=== PATIENT | male | born 1945 | race Caucasian/White ===

== ENCOUNTER 2018-05-25 07:59 | Day surgery (SDC) | payer MEDICARE, OTHER ==
[~2018-05-25] VITALS: Ht 182.9 cm; Wt 83.0 kg
[~2018-05-25 07:59] MED LIST: ASCO500 PO; ASPI81CH PO; Avapro300 MG PO; CYCL10 PO; FISH1000 PO; GABA100 PO; HYDACE5 PO; IBUP400 PO; Multiple Vitam1 EAC1 PO; Questran Light210 GM; SIMV10 PO; TADA10TA PO
== END 2018-05-25 09:47 | disposition home or self-care (01) ==
LOC: ORSCSDS 07:59
PROVIDERS: Orthopaedic Surgery
PROC: 3E0R33Z Introduction of Anti-inflammatory into Spinal Canal, Percutaneous Approach (ICD-10-PCS; principal; 2018-05-25 09:00)
DX: M51.16 Intervertebral disc disorders with radiculopathy, lumbar region (principal); M48.061 Spinal stenosis, lumbar region without neurogenic claudication; A69.20 Lyme disease, unspecified; I10 Essential (primary) hypertension; E78.5 Hyperlipidemia, unspecified; Z87.891 Personal history of nicotine dependence; Z79.82 Long term (current) use of aspirin; Z79.899 Other long term (current) drug therapy
CPT/HCPCS: J1040

== ENCOUNTER 2020-11-03 13:55 | Inpatient (IN) | payer MEDICARE, OTHER ==
[~2020-11-03] VITALS: Ht 182.9 cm; Wt 72.6 kg
[~2020-11-03 13:55] MED LIST changes: -Avapro300 MG PO; -FISH1000 PO; +IRBE150 PO; +OMEGA-3 FISH O1 EAC6 PO
[2020-11-03 14:27] LABS: BASOPHILS ABSOLUTE AUTO 0.04 K/mm3 (0.00-0.23); BASOPHILS PERCENT AUTO 0 % (0-2); EOSINOPHILS ABSOLUTE AUTO 0.01 K/mm3 (0.00-0.68); EOSINOPHILS PERCENT AUTO 0 % (0-6); Hematocrit 35.9 % (37.0-53.0); IMMATURE GRAN ABSOLUTE AUTO 0.14 K/mm3 (0.00-0.10); IMMATURE GRAN PERCENT AUTO 1 % (0-1); LYMPHOCYTES ABSOLUTE AUTO 0.53 K/mm3 (0.84-5.20); LYMPHOCYTES PERCENT AUTO 3 % (21-46); MONOCYTES ABSOLUTE AUTO 0.74 K/mm3 (0.16-1.47); MONOCYTES PERCENT AUTO 5 % (4-13); Mean Corpuscular HGB 30.8 pg (26.0-34.0); Mean Corpuscular HGB Conc 33.4 g/dL (31.5-36.5); Mean Corpuscular Volume 92 fL (80-100); Mean Platelet Volume 9.2 fL (9.1-12.4); NEUTROPHILS ABSOLUTE AUTO 14.29 K/mm3 (1.96-9.15); NEUTROPHILS PERCENT AUTO 91 % (41-73); Platelet Count 196 K/mm3 (150-400); RDW Coefficient Variation 15.9 % (11.7-14.2); RDW Standard Deviation 53.9 fL (35.1-46.3); White Blood Cell Count 15.75 K/mm3 (4.00-11.30)
[2020-11-03 14:44] LABS: Alanine Aminotransfer (ALT/SGP 25 U/L (12-78); Albumin, Blood 2.8 g/dL (3.4-5.0); Albumin/Globulin Ratio 0.7 (0.8-1.8); Alk Phos 80 U/L (50-136); Anion Gap 9 mmol/L (6-16); Aspartate Aminotrans (AST/SGOT 17 U/L (12-37); Bilirubin, Total 1.6 mg/dL (0.1-1.0); Blood Urea Nitrogen 27 mg/dL (8-24); Bun/Creatinine Ratio 24.8 (12.0-20.0); CO2, Blood 23 mmol/L (21-32); Calcium, Blood 8.8 mg/dL (8.5-10.1); Chloride, Blood 100 mmol/L (98-108); Creatinine, Blood 1.09 mg/dL (0.60-1.20); Globulin, Blood 4.2 g/dL (2.2-4.0); Glomerular Filtration Rate >60 (60-); Glucose, Blood 99 mg/dL (70-99); Potassium, Blood 4.3 mmol/L (3.5-5.5); Sodium, Blood 132 mmol/L (136-145); Troponin I 0.079 ng/mL (0.000-0.040)
[2020-11-03 16:20] LABS: Influenza A, PCR NEGATIVE (NEGATIVE); Influenza B, PCR NEGATIVE (NEGATIVE); Resp Syncytial Virus, PCR NEGATIVE (NEGATIVE); SARS-Cov-2 (COVID-19) PCR, MMC NEGATIVE (NEGATIVE)
--- NOTE | 2020-11-03 18:49 | NUR ---
SHIFT SUMMARY PATIENT TO THE FLOOR FROM THE ER LATE THIS SHIFT. PATIENT MADE COMFORTABLE AND ORIENTED TO THE ROOM. PATIENT SITTING UP IN BED, SON AT BEDSIDE.
--- NOTE | 2020-11-04 04:30 | NUR ---
SHIFT SUMMARY ASSUMED CARE OF PT AT 1900. PT IS A/OX4. HEART SOUNDS REGULAR, LUNG SOUNDS ARE COURSE WITH CARCKLES T/O, PT HAS PRODUCTIVE COUGH, PT SUCTIONS HIMSELF, SPUTUM IS THICK AND YELLOW. PT ON 2L NC. PT SBA TO BATHROOM WITH WALKER. PT CONTIENT T/O THE NIGHT. PT HAD A HARD TIME SLEEPING, HOSPITALIST NOTIFIED. CALL LIGHT IN REACH, BED IN LOWEST POSTION.
[2020-11-04 04:55] LABS: BASOPHILS ABSOLUTE AUTO 0.01 K/mm3 (0.00-0.23); BASOPHILS PERCENT AUTO 0 % (0-2); EOSINOPHILS ABSOLUTE AUTO 0.03 K/mm3 (0.00-0.68); EOSINOPHILS PERCENT AUTO 0 % (0-6); Hematocrit 30.4 % (37.0-53.0); IMMATURE GRAN ABSOLUTE AUTO 0.08 K/mm3 (0.00-0.10); IMMATURE GRAN PERCENT AUTO 1 % (0-1); LYMPHOCYTES ABSOLUTE AUTO 0.64 K/mm3 (0.84-5.20); LYMPHOCYTES PERCENT AUTO 6 % (21-46); MONOCYTES ABSOLUTE AUTO 0.58 K/mm3 (0.16-1.47); MONOCYTES PERCENT AUTO 5 % (4-13); Mean Corpuscular HGB 30.7 pg (26.0-34.0); Mean Corpuscular HGB Conc 32.9 g/dL (31.5-36.5); Mean Corpuscular Volume 93 fL (80-100); Mean Platelet Volume 9.1 fL (9.1-12.4); NEUTROPHILS ABSOLUTE AUTO 10.26 K/mm3 (1.96-9.15); NEUTROPHILS PERCENT AUTO 88 % (41-73); Platelet Count 165 K/mm3 (150-400); RDW Coefficient Variation 15.9 % (11.7-14.2); RDW Standard Deviation 54.9 fL (35.1-46.3); Red Blood Cell Count 3.26 M/mm3 (4.30-5.90)
[2020-11-04 05:22] LABS: Alanine Aminotransfer (ALT/SGP 19 U/L (12-78); Albumin, Blood 2.3 g/dL (3.4-5.0); Albumin/Globulin Ratio 0.6 (0.8-1.8); Alk Phos 67 U/L (50-136); Anion Gap 7 mmol/L (6-16); Aspartate Aminotrans (AST/SGOT 10 U/L (12-37); Bilirubin, Total 0.9 mg/dL (0.1-1.0); Blood Urea Nitrogen 31 mg/dL (8-24); Bun/Creatinine Ratio 33.9 (12.0-20.0); CO2, Blood 25 mmol/L (21-32); Chloride, Blood 104 mmol/L (98-108); Creatinine, Blood 0.91 mg/dL (0.60-1.20); Globulin, Blood 3.8 g/dL (2.2-4.0); Glomerular Filtration Rate >60 (60-); Glucose, Blood 88 mg/dL (70-99); Potassium, Blood 4.4 mmol/L (3.5-5.5); Sodium, Blood 136 mmol/L (136-145); Total Protein, Blood 6.1 g/dL (6.4-8.2)
[2020-11-04] MEDS ORDERED: Prednisone10 MG PO (09:09)
[2020-11-04] MEDS ORDERED: OMEP20ER PO (09:09)
[2020-11-04] MEDS ORDERED: ATROVENT HFA12.9 GM INH (09:10)
[2020-11-04] MEDS ORDERED: ZOLPIDEM TARTRA10 MG PO (09:10)
[2020-11-04] MEDS ORDERED: GABA100 PO (09:11)
[2020-11-04] MEDS ORDERED: HYDROCODONE-AC1 EA11 PO (09:11)
[2020-11-04] MEDS ORDERED: XANAX0.25 MG PO (09:11)
[2020-11-04] MEDS ORDERED: TRAZ50 PO (09:12)
[2020-11-04] MEDS ORDERED: REGLAN PO (10:20)
[2020-11-04] MEDS ORDERED: ATOR20 PO (10:22)
--- NOTE | 2020-11-04 15:50 | NUR ---
ADMIT: 11/03/20 DISCHARGE: DX: Pneumonia, Lung cancerCC: cpeabody KRISTOPHER CALL: Met with Ja, call him at home for kristopher call. 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 CAREGIVER:Son Jorge, Child, DX: adenocarcinoma of lung, HTN, Chronic back schulz, CAD, see list DME: none CCM: Referral 08/2020 HOME HEALTH: none SUMMARY: Admit 10/06/20 10/07/20 Met with Ja, updated white board with my name and number and Dr Quintanilla, Discussed care coordination going home. Says he may need help. Can afford to pay a caregiver. Per OT evauation, Home with Home health, partime caregiver recommended Per Dr Quinatnilla, ETA discharge 2 days. cp 1. Admit to [facility]. 2. Inpatient status. 3. Code status was confirmed and patient was confirmed to be a full code. 4. We will continue IV Rocephin and azithromycin. 5. We will follow up with results of blood cultures and sputum cultures.
--- NOTE | 2020-11-04 16:49 | NUR ---
SHIFT SUMMARY- PT A/OX3. PT UP INDEP IN ROOM, WORKED WITH PT/OT TODAY. LS COARSE T/O, MOIST HACKING PRODUCTIVE COUGH WITH THICK YELLOW SPUTUM, PT SUCTIONS INDEP. SOB WITH EXERTION, PT ON ROOM AIR T/O THE DAY. HOME MEDICATIONS VERIFIED AND UPDATED. NO OTHER ACUTE CHANGES THIS SHIFT.
--- NOTE | 2020-11-05 06:56 | NUR ---
74 year old MAle appears older than actual age continues with productive cough & dyspnea which requires oxygen. He has active lung cancer last treatment 1 month ago & due for chemo. Medicated for insommnia x 1 with restoril & once for anxiety with xanax. Up indep in room but pale weak & SOB at rest or exertion .
--- NOTE | 2020-11-05 12:32 | NUR ---
DR FREED OFFICE NOTIFIED OF CONSULT.
--- NOTE | 2020-11-05 14:36 | NUR ---
DR FREED IN TO SEE PT.
--- NOTE | 2020-11-05 15:25 | NUR ---
PT REPORTS HIS KIDS WILL BE IN TOWN TODAY AND HE SPOKE TO DR FREED AND WAS WONDERING ABOUT DISCHARGING HOME TODAY, SPOKE WITH DR GU WHO REPORTS HE WANTS HIM TO STAY ANOTHER NIGHT. PT WAS AGREEABLE TO THIS.
--- NOTE | 2020-11-05 16:41 | NUR ---
SHIFT SUMMARY- PT A/O X4, INDEP UP IN ROOM. PT DENIES ANY PAIN. PT REPORTS HE FEELS WORSE TODAY THAN WHEN HE CAME IN AND WAS FRUSTRATED WITH THIS, PT REPORTS HE JUST FEELS MORE FATIGUED THAN YESTERDAY WHEN HE WAS ABLE TO GET UP AND ABMULATE THE HALLS. PT DOES HOWEVER SOUND BETTER TODAY, LS REMAIN COARSE WITH SOME RHONCHI AND CONTINUES WITH MOIST HACKING COUGH BUT NOT HARSH YESTERDAY AND DECREASED SPUTUM. PT STARTED ON PRN COUGH MEDICATION, PT CONT TO SUCTION INDEP. SOB WITH EXERTION AND WHEN TALKING AT TIMES. PT REQUESTED DR FREED TO SEE PT, DR FREED DID CONSULT PT AND HE REPORTS PT HAS SOUNDED LIKE THIS WHEN SPEAKING FOR THE PAST 2 MONTHS AND REPORTS PT'S FAMILY IS COMING TO TOWN FOR A MEETING WITH HIM NEXT WEEK. PT REPORTS HE WANTS TO GO HOME HOWEVER DR GU KEEPING FOR ONE MORE DAY. PT WAS ON 02 AT 2L THIS AM HOWEVER PT SATS IN THE 90'S ON ROOM AIR AND HAS BEEN OFF 02 THIS EVENING. NO OTHER ACUTE CHANGES THIS SHIFT.
--- NOTE | 2020-11-05 18:11 | NUR ---
ADMIT: 11/03/20 DISCHARGE: DX: Pneumonia, Lung cancerCC: cpeabody KRISTOPHER CALL: Met with Ja, call him at home for kristopher call. 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 CAREGIVER:Son Jorge, Child, DX: adenocarcinoma of lung, HTN, Chronic back schulz, CAD, see list DME: none CCM: Referral 08/2020 HOME HEALTH: none SUMMARY: Admit 11/03/20 11/05/[address] Quintanilla, patient wants to d/c home with home oxygen, although he does not qualify for oxygen, can private pay without testing confirmed per Dr Quintanilla request. PT evaluation from recommends outpatient therapy, which he already attends. No dme recommended. Patient expressed concerns with DR Hardy dx of his problem to floor nurse Pilo, Plio updated me that she put in a consult for DR Thibodeaux to see patient in hospital. Currently receiving treatment for Lung ca, outpatient from DR Thibodeaux. Per Dr Quintanilla, ETA discharge . cp 11/04/20 Met with Ja, updated white board with my name and number and Dr Quintanilla, Discussed care coordination going home. Says he may need help. Can afford to pay a caregiver. Per OT evauation, Home with Home health, partime caregiver recommended Per Dr Quintanilla, ETA discharge 2 days. cp 1. Admit to [facility]. 2. Inpatient status. 3. Code status was confirmed and patient was confirmed to be a full code. 4. We will continue IV Rocephin and azithromycin.
--- NOTE | 2020-11-06 04:55 | NUR ---
SHIFT SUMMARY PATIENT HAD NO ACUTE CHANGES OBSERVED. AXOX 4 AND INDEPENDENT IN THE ROOM. PATIENT WILL SUCTION INDEPENDENTLY. SOB W/EXERTION. USES O2 PRN AND ROOM AIR THIS SHIFT. GUAFENESIN 15 mL GIVEN FOR COUGH PER EMAR. DENIES PAIN AND N/V. VSS/AFEBRILE. COOPERATIVE WITH CARE. CALL LIGHT IN REACH. BED IN LOWEST POSITION. WILL CONTINUE TO MONITOR UNTIL DAY SHIFT NURSE ASSUMES CARE.
[2020-11-06] MEDS ORDERED: GI COCKTAIL PO (14:02)
[2020-11-06] MEDS ORDERED: NYSTATIN100000 UN1 MT (14:03)
[2020-11-06] MEDS ORDERED: AZIT500 PO (14:04)
[2020-11-06] MEDS ORDERED: CEFD300 PO (14:04)
--- NOTE | 2020-11-06 16:24 | NUR ---
DISCHARGE PT DISCHARGED TO HOME. DISCHARGE INSTRUCTIONS AND MEDICATIONS EXPLAINED TO PT AND PT'S SON. THEY REPORT THEY UNDERSTAND. MEDICATIONS FAXED TO [facility] PER REQUEST. IV REMOVED WITHOUT DIFFICULTY. PT TRANSFERRED TO PRIVATE VEHICLE VIA WHEELCHAIR. BELONGINGS WITH PT.
--- NOTE | 2020-11-06 23:41 | NUR ---
ADMIT: 11/03/20 DISCHARGE: 11/06/20 DX: Pneumonia, Lung cancerCC: cpeabody KRISTOPHER CALL: Met with Ja, call him at home for kristopher call. kristopher follow up by telehealth preferred. 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 CAREGIVER:Son Jorge, Child, 11/06/20 Gave Caregiver agency list to Ja to review if needed in future. DX: adenocarcinoma of lung, HTN, Chronic back schulz, CAD, see list DME: none CCM: Referral 08/2020 HOME HEALTH: Gave Home health broshures to patient to review, will ask pcp or dexter to order if he decides he wants. SUMMARY: Admit 11/03/20 11/06/20 Discharge home today, son picked up for transport and pharmacy if needed. Discussed kristopher call and follow up appointment with [facility]. Ja does not want to come into [facility] for appointment. Maybe a telephone appointment. He wants to follow up with Dr Thibodeaux and complete a overnight oximetry for possible need of nocturnal oxygen. [facility] I [facility] Dr Thibodeaux office, s/w Ayde, Dr Thibodeaux agreed to order the test. Reviewed discharge checklist and gave kristopher letter to Ja. Follow up efm 1 week if patient agrees to appointment. chaz
== END 2020-11-06 15:17 | disposition home or self-care (01) | DRG 193 ==
LOC: ER 13:55 → MEDS 15:49
PROVIDERS: Emergency Medicine; ADMIT Internal Medicine
DX: J18.9 Pneumonia, unspecified organism (principal); J96.01 Acute respiratory failure with hypoxia; C34.90 Malignant neoplasm of unspecified part of unspecified bronchus or lung; C79.51 Secondary malignant neoplasm of bone; E87.1 Hypo-osmolality and hyponatremia; E78.5 Hyperlipidemia, unspecified; Z20.822 Contact with and (suspected) exposure to COVID-19; I10 Essential (primary) hypertension; Z98.890 Other specified postprocedural states; Z87.891 Personal history of nicotine dependence; Z90.2 Acquired absence of lung [part of]; Z92.3 Personal history of irradiation; Z79.899 Other long term (current) drug therapy; Z92.21 Personal history of antineoplastic chemotherapy
CPT/HCPCS: 0241U; 36415; 71046; 80053; 83605; 83880; 84484; 85025; 87040; 87070; 87147; 87205; 93005; 93010; 94640; 94760; 96365; 96367; 97110; 97116; 97161; 97165; 97530; 97535; 99285-25; A9270; J0456; J0696; J1650; J7030; J7050; J7512

== ENCOUNTER → 2020-11-18 | Outpatient (CLI) | payer MEDICARE, OTHER ==
[~2020-11-18] MED LIST changes: +ATOR20 PO; +ATROVENT HFA12.9 GM INH; +AZIT500 PO; +CEFD300 PO; +GI COCKTAIL PO; +HYDROCODONE-AC1 EA11 PO; +NYSTATIN100000 UN1 MT; +OMEP20ER PO; +Prednisone10 MG PO; +REGLAN PO; +TRAZ50 PO; +XANAX0.25 MG PO; +ZOLPIDEM TARTRA10 MG PO
[2020-11-18 17:44] LABS: BASOPHILS ABSOLUTE AUTO 0.03 K/mm3 (0.00-0.23); BASOPHILS PERCENT AUTO 0 % (0-2); EOSINOPHILS PERCENT AUTO 0 % (0-6); Hematocrit 35.3 % (37.0-53.0); IMMATURE GRAN ABSOLUTE AUTO 0.41 K/mm3 (0.00-0.10); IMMATURE GRAN PERCENT AUTO 2 % (0-1); LYMPHOCYTES ABSOLUTE AUTO 0.82 K/mm3 (0.84-5.20); LYMPHOCYTES PERCENT AUTO 5 % (21-46); MONOCYTES ABSOLUTE AUTO 0.68 K/mm3 (0.16-1.47); MONOCYTES PERCENT AUTO 4 % (4-13); Mean Corpuscular HGB 31.2 pg (26.0-34.0); Mean Corpuscular Volume 92 fL (80-100); Mean Platelet Volume 9.7 fL (9.1-12.4); NEUTROPHILS ABSOLUTE AUTO 15.23 K/mm3 (1.96-9.15); NEUTROPHILS PERCENT AUTO 89 % (41-73); Platelet Count 300 K/mm3 (150-400); RDW Coefficient Variation 15.9 % (11.7-14.2); RDW Standard Deviation 53.8 fL (35.1-46.3); Red Blood Cell Count 3.85 M/mm3 (4.30-5.90); White Blood Cell Count 17.17 K/mm3 (4.00-11.30)
== END ==
LOC: LAB SHORT 17:37 → LAB EV 17:37
PROVIDERS: Physician Assistant
DX: J18.1 Lobar pneumonia, unspecified organism (principal)
CPT/HCPCS: 85025